=== PATIENT | male | born 1940 | race Caucasian/White ===

== ENCOUNTER 2017-04-16 09:04 | Emergency (ER) | payer MEDICARE ==
[~2017-04-16] VITALS: Ht 185.4 cm; Wt 114.4 kg
[2017-04-16 09:10] VITALS: BP 111/70
[2017-04-16] MEDS ORDERED: ATOR10TA9 PO (10:18)
[2017-04-16] MEDS ORDERED: VALS160T3 PO (10:18)
[2017-04-16] MEDS ORDERED: ASPI-496 PO (10:18)
== END 2017-04-16 10:53 | disposition home or self-care (01) ==
LOC: ED 10:45
DX: R21 Rash and other nonspecific skin eruption (principal); I10 Essential (primary) hypertension; E78.5 Hyperlipidemia, unspecified; Z95.1 Presence of aortocoronary bypass graft
CPT/HCPCS: 99283